=== PATIENT | female | born 1990 | race Caucasian/White ===

== ENCOUNTER 2016-10-04 00:08 | Observation (INO) | payer OTHER ==
[~2016-10-04] VITALS: Ht 170.2 cm; Wt 108.4 kg
[2016-10-04] MEDS ORDERED: Lactated Ringer's 1,000 ML IV SCH (07:52)
[2016-10-04] MEDS ORDERED: Sodium Chloride LOK Flush 10 mL Syringe IVFLUSH PRN ×2 (07:55→08:40)
[2016-10-04] MEDS ORDERED: Lactated Ringer's 1,000 ML IV PRN (08:36)
[2016-10-04] MEDS ORDERED: Oxytocin 10 Unit/mL Inj IM PRN (08:40)
[2016-10-04] MEDS ORDERED: Hemorrhage Kit, Post Partum XX ONE (08:40)
[2016-10-04] MEDS ORDERED: Methylergonovine 0.2 mg/mL Inj IM PRN (08:40)
[2016-10-04] MEDS ORDERED: Oxytocin 30 Units/500 mL LR 30 UNITS in IV Premix 1 EACH IV PRN (08:40)
[2016-10-04] MEDS ORDERED: Carboprost 250 mCg/mL Inj IM PRN (08:40)
--- NOTE | 2016-10-04 08:46 | PCM.HPOB ---
Subjective Referring Provider: Admitting Physician: Nemo Giles MD Primary Care Physician: Nemo Giles MD Attending Physician: Nemo Giles MD Chief Complaint Term Induction History of Present History of Present Illness This is a 25 year old Female presenting at 40 0/7 weeks for scheduled post dates induction. Routine to this point. THC screen positive GBS negative Chlamydia treated with Azithromycin 03/19. No contractions. Was 2 cm 40% effaced in office last week. Panel ordered 06/13 and 07/14 but apparently not done. OB History: (2), Para (1), Living (1) Obstetrical Complications: None Past Medical History Smoking Status: Unknown if Ever Smoker Hx Alcohol Use: No Hx Substance Use: Yes (THC) Past Family History Living Arrangement: with Family Genetic Screening/Counseling Genetic Screening/Counseling: Negative Genetic Screening: Down syndrome Review of Systems Constitutional: Y: Change of appitite, Chills, Dizziness, Fever, Malaise, Other , Pain, Sweats, Weakness, Weight loss Eyes: Denies: Blurred Vision, Conjunctive Inflammation, Double Vision, Eyelid Inflammation, Other, Pain, Redness, Vision Changes ENT: Denies: Dental Problems, Dysphagia, Ear Discharge, Ear Pain, Hoarseness, Membranes Dry, Nasal Congestion, Nose Discharge, Nose Pain, Other, Throat Pain, Tinnitus, Ulcers/Sores in Mouth Cardiovascular: Denies: Chest Pain, Edema, Orthopnea, Other, Palpitations, SOB while laying flat Respiratory: Denies: Cough, Cough with bloody sputum, Other, Pleuritic Chest Pain, Pleuritic Chest Pain, SOB with Exertion, Sputum, Wheezing Gastrointestinal: Denies: Abdominal Pain, Black tarry stools, Blood in stool ( red), Change in Appetite, Constipation, Diarrhea, Epigastric pain, Heartburn, Nausea, Other, Use of Laxatives, Vomiting Genitourinary: Denies: Anuria, Change in Frequency, Dysuria, Hematuria, Incontinence, Nocturia, Other, Retention Musculoskeletal: Denies: Back Pain, Deformity, Limitation of Function, Neck Pain, Other, Redness, Shoulder Pain, Swelling Skin/Breasts: Denies: Bruising, Discharge, Dry or Flakiness, Jaundice, Lesions , Masses, Mastalgia, Other, Rash, Scars, Ulcers Skin: Denies: Bruising, Dry or Flakiness, Jaundice, Lesions, Other, Rash, Scars , Ulcers Neurological: Denies: Change in Speech, Confusion, Dizziness, Incoordination, Numbness, Other, Seizures, Somnolence, Tremors, Weakness Psychologic: Denies: Agitation, Anxious, Apprehensive, Depression, Insomnia, Instability, Nervousness, Other Endocrine: Denies: Blood Glucose Review, Change in Appitite, Diaphoresis, Excessive Thirst, Intolerent to Heat/Cold, Other, Recent A1C, Urinating frequently Hematologic: Denies: Abnormal bleeding, Adenopathy, Bruising, Other Medications Home medications PNV Allergy Coded Allergies: amoxicillin (Unverified Allergy, Unknown, 10/04/16) Exam Vital Signs Exam FHT 130's and reactive. Constitutional: Well-developed, No deformities, Well-groomed HEENT: Atraumatic Lungs: Clear to Auscultation Heart: Exam Unremarkable, Regular Rate/Rhythm, No Murmurs/Rubs/Gallops Abdomen: Gravid, Normal bowel sounds, Soft, No tenderness Lymphatic: Normal: Neck Palpation of Nodes Extremities: No Edema Neurological/Psychiatric: Alert, Oriented X3, No Acute Distress Neuro: Grossly Neurologically Intact, Normal Gait Gynecologic: Normal: Cervix, Uterus (2.5 cm soft vertex high floating 40% effaced) Labs/Diagnostics Group B Strep Results: Negative Previous Infant with GBS: No OB Intrapartum Assessment/Plan Assessment Term Induction -patient request -GBS negative -Missing labs Plan: Cytotec +/- Pitocin today Draw the missed panel labs. Nemo Giles MD Oct 04, 2016 08:31
[2016-10-04] MEDS: Misoprostol 25 mCg/0.25 Tablet VAGINAL SCH ×2 (09:50→17:10)
--- NOTE | 2016-10-04 10:29 | NUR ---
Social Work Note - Family assessment Andrews Reza is a 25 yr old who was admitted for induction of baby boy today. Baby boy has not been born at the time of the interview. FOB is Collin Oakley. Reason for SW consult: Marijuana during . Current living situation: Parents live together in [place] with 5 yr old son Bebo. No previous CPS involvement. Substance use Hx: Pt states that she smokes marijuana frequently for help with anxiety. She denies any other drugs or ETOH use. Denies any hx of rehab or need for treatment. Identifies that she needs to stop/cut back on her use. Mental Helath Hx: Pt denies any mental health - states that her anxiety does not require psychiatric treatment or counseling. She has good supports. Source of income: Pt gets food stamps and [employer] support - FOB is going to school to become an electrician sound. They have gould assistance to help with rent and have good family support. DV/Abuse: Pt denies any concerns with abuse. LOADING SHOVEL OILER identified that CPS would be contacted for concerns with THC during - Identified that CPS may call to follow up for the safety of the child and to see about help with resources if warranted. Pt and FOB understand and deny any questions. LOADING SHOVEL OILER called CPS report to Eleonora White at [facility]. Family denies any other needs, denies needing resources, aware of community supports. Plan: LOADING SHOVEL OILER anticipates that baby boy will d/c home with parents - no other needs identified. LOADING SHOVEL OILER updated RN. Soheila Altamirano, CONCHE OPERATOR
--- NOTE | 2016-10-04 15:50 | DRSVH ---
PROCEDURE: US OB AMNIOTIC FLUID INDEX/ POSITION LIMITED INDICATIONS: BABY POSITION OUTSIDE/PRIOR DATING DATA: Last menstrual period (LMP): 12/29/15 LMP-based estimated date of delivery (ISAAC): 10/04/16 First dating scan (date and location): 08/26/16 performed by [facility]. Estimated date of delivery (ISAAC) from first dating scan: 09/29/69. TECHNIQUE: Real-time scanning was performed of the fetus, with image documentation and biometric measurements. COMPARISON: None. FINDINGS: General: A single living intrauterine gestation is present. Presentation: Vertex Placenta: Placental position is anterior, without previa. OB-NATIONAL SALES REPRESENTATIVE Ultrasound Procedure Report Summary Fetus Summary Est. Gest. Age by first dating scan(or LMP,if no prior):40 weeks, 5 days Heart Rate: 138 bpm Findings(Amniotic Sac) Amniotic Fluid Index (NERI): 19.60 cm Pelvis and Uterus Cervix Length: Not well seen. IMPRESSION: Single living intrauterine gestation is present in vertex presentation. No additional im aging of the fetus performed. Dictated by: Gio Arnett RR Interpreted: Miguelito Stallworth MD on 10/04/2016 at 15:47 Transcribed by: ANGE on 10/04/2016 at 15:50 Approved by: Miguelito Stallworth M.D. on 10/04/2016 at 17:42
[2016-10-04 20:14] LABS: Mean Corpuscular Hemoglobin 29.1 pg (27.0-35.0); Mean Corpuscular Volume 91.9 fL (81-100)
--- NOTE | 2016-10-04 21:41 | PCM.DIMED ---
Discharge Instructions Date of Service Oct 04, 2016 Dates of Hospitalization Oct 04, 2016 at 07:28 Discharge Diagnosis Discharge Diagnosis Term Failed Cytotec Induction A Negative Blood Type Diet No restrictions Activity No restrictions Patient Instructions Follow-up Provider: Abdulaziz Dumont MD Follow-up with PCP in: Other (2-3 days) Additional Information You have a reserved induction slot on October 13 at 7 am if you still need it by then. Nemo Giles MD Oct 04, 2016 21:41
[2016-10-05 04:07] LABS: Rubella IgG Antibody 1.03 index (Immune >0.99)
--- NOTE | 2016-10-05 17:56 | PCM.DC.MED ---
Discharge Summary Date of Service Oct 04, 2016 Dates of Hospitalization Date of Hospital Admission Oct 04, 2016 at 07:28 Date of Discharge: Oct 04, 2016 Providers: Admitting Physician: Nemo Giles MD Primary Care Physician: Nemo Giles MD Attending Physician: Nemo Giles MD Diagnosis at Time of Discharge Diagnosis at Time of Discharge Term Failed Cytotec Induction A Negative Blood Type Brief History This is a 25 year old Female presenting at 40 0/7 weeks for scheduled post dates induction. Routine to this point. THC screen positive GBS negative Chlamydia treated with Azithromycin 03/19. No contractions. Was 2 cm 40% effaced in office last week. Panel ordered 06/13 and 07/14 but apparently not done. Hospital Course Cervix dilated to 3.5 cm with 2 doses of Cytotec over 14 hours. Head continued to be unengaged and floating. Blood type of A negative was identified. In Conclusion: Unfavorable Cytotec response Not enough staff to safely proceed with Pitocin trial in this non urgent induction. Non enough staff to keep her around for the 2 hours it would take to get her a Rhogam shot late tonight. She is not going easily into labor, she is not an urgent induction, without medical concerns or signs of macrosomia on recent US, she will be rescheduled for 10/13 and will follow up with my covering partner Dr. Dumont while I am out of town this week. Exam Test 10/04/16 08:00 10/04/16 09:40 Hold Urine Received (Received) Urine Opiates Screen Negative Urine Methadone Screen Negative Urine Barbiturates Screen Negative Urine Amphetamines Screen Negative Urine Benzodiazepines Screen Negative Urine Cocaine Metabolite Screen Negative Urine Cannabinoids Screen Positive White Blood Count 10.3th/mm3 (3.8-10.1) Red Blood Count 4.09mil/mm3 (3.90-5.20) Hemoglobin 11.9g/dL (12.0-15.6) Hematocrit 37.6% (35.0-46.0) Mean Corpuscular Volume 91.9fL (81-100) Mean Corpuscular Hemoglobin 29.1pg (27.0-35.0) Mean Corpuscular Hemoglobin Concent 31.6% (32.0-37.0) Red Cell Distribution Width 13.6% (12.3-15.4) Platelet Count 249bil/L (150-400) Rapid Plasma Reagin Non reactive (Non Reactive) Hepatitis B Surface Antigen Negative (Negative) Rubella IgG Antibody 1.03index (Immune >0.99) Discharge Medications No Active Prescriptions or Reported Meds Followup Plan Discharge Diet: No restrictions Discharge Activity: No restrictions Follow-up Provider: Abdulaziz Dumont MD Follow-up with PCP in: Other (2-3 days) Nemo Giles MD Oct 05, 2016 17:56
== END 2016-10-04 21:56 | disposition home or self-care (01) ==
LOC: FBC 07:28 → INTOOBSV 07:28
PROVIDERS: ADMIT Family Medicine; ATTEND Family Medicine
DX: O61.0 Failed medical induction of labor (principal); O99.323 Drug use complicating pregnancy, third trimester; Z3A.40 40 weeks gestation of pregnancy; F12.90 Cannabis use, unspecified, uncomplicated
CPT/HCPCS: 36415; 76815; 85027; 86592; 86762; 87340; 87491; 87591; G0463; G0480

== ENCOUNTER 2016-10-09 20:35 | Inpatient (IN) | payer OTHER ==
[~2016-10-09] VITALS: Ht 170.2 cm; Wt 108.0 kg
[2016-10-09] MEDS ORDERED: Sodium Chloride LOK Flush 10 mL Syringe IVFLUSH PRN (21:30)
[2016-10-09] MEDS ORDERED: Hemorrhage Kit, Post Partum XX ONE (21:30)
[2016-10-09] MEDS ORDERED: Carboprost 250 mCg/mL Inj IM PRN (21:30)
[2016-10-09] MEDS ORDERED: Oxytocin 10 Unit/mL Inj IM PRN (21:30)
[2016-10-09] MEDS ORDERED: Methylergonovine 0.2 mg/mL Inj IM PRN (21:30)
[2016-10-09] MEDS ORDERED: Oxytocin 30 Units/500 mL LR 30 UNITS in IV Premix 1 EACH IV PRN (21:30)
[2016-10-09] MEDS ORDERED: fentaNYL-PF 50 mCg/mL 2 mL Inj IVPUSH ONE ×2 (21:45→22:35)
[2016-10-09] MEDS: Lactated Ringer's 1,000 ML IV PRN ×2 (21:51→23:02)
[2016-10-09 22:01] LABS: Mean Corpuscular Hemoglobin 29.3 pg (27.0-35.0); Mean Corpuscular Volume 87.5 fL (81-100)
[2016-10-09] MEDS ORDERED: Sodium Citrate-Citric Acid 15 mL Solution ONE (22:32)
[2016-10-09] MEDS ORDERED: fentaNYL 2 mCg/mL-Bupivicaine 0.125% 100 mL Premix EPIDURAL ONE (22:47)
[2016-10-09] MEDS ORDERED: Lactated Ringer's 500 ML IV ONE (23:24)
--- NOTE | 2016-10-09 23:24 | PCM.HPANE ---
Patient Data Date of Service: Oct 09, 2016 (6054) Surgeon Admitting Provider:Nemo Giles MD Attending Provider:Nemo Giles MD Primary Care Physician:Nemo Giles MD Other Provider:Felton Kingsley Anesthesia Reason for Visit TERM TERM Ht/WT & BMI Body Mass Index Allergies Coded Allergies: amoxicillin (Unverified Allergy, Unknown, 10/04/16) Medications No Active Prescriptions or Reported Meds History Hx Alcohol Use: NoHx Substance Use: Yes (THC) Smoking Status: Unknown if Ever Smoker Stop/Bang Risk Assessment Category Category 1A: Patient has history of documented sleep apnea, and HAS NOT received any narcotic, sedative or anesthesia administration during this stay. Category 1B: Patient has history of documented sleep apnea, and HAS received any narcotic , sedative or anesthesia administration during this stay Category 2: Patient has SUSPECTED Obstructive Sleep Apnea, and HAS received any narcotic , sedative or anesthesia administration during this stay. Category 3: Patient has SUSPECTED Obstructive Sleep Apnea and HAS NOT received narcotic, sedative or anesthesia administration during this stay. Category 4: Outpatient in Procedural Areas with known sleep apnea or who screen positive for High Risk via the STOP/BANG questionnaire. Exam Exam Vital Signs Vital Signs Date Time Temp Pulse Resp B/P Pulse Ox O2 Delivery O2 Flow Rate FiO2 10/09/16 22:44 93 General Appearance: Alert, Oriented X3, Cooperative, No Acute Distress HEENT/AIRWAY: MP 2 Lungs: Clear to Auscultation Heart: Exam Unremarkable Meds/Labs/Diagnostics Admission Meds Current Medications Fentanyl Citrate (Sublimaze Inj) 50 mcg OT ONCE IVPUSH Last administered on 21:50; Start 10/09/16 at 21:45; Stop 10/09/16 at 21:46; Status DC Terbutaline Sulfate (Brethine Inj) 1 mg STK-MED ONCE .ROUTE Last administered on 10/09/16 22:44; Start 10/09/16 at 22:30; Stop 10/09/16 at 22:32; Status DC Fentanyl Citrate (Sublimaze Inj) 50 mcg ONCE ONCE IVPUSH Last administered on 10/09/16 22:43; Start 10/09/16 at 22:35; Stop 10/09/16 at 22:38; Status DC Labs Test 10/09/16 21:20 White Blood Count 15.6th/mm3 (3.8-10.1) Red Blood Count 4.33mil/mm3 (3.90-5.20) Hemoglobin 12.7g/dL (12.0-15.6) Hematocrit 37.9% (35.0-46.0) Mean Corpuscular Volume 87.5fL (81-100) Mean Corpuscular Hemoglobin 29.3pg (27.0-35.0) Mean Corpuscular Hemoglobin Concent 33.5% (32.0-37.0) Red Cell Distribution Width 13.8% (12.3-15.4) Platelet Count 283bil/L (150-400) Hold Purple Top Tube Received (Received) Plan Impression Patient chart reviewed, patient interviewed and anesthestic plan with risks, benefits, and alternatives discussed, and informed consent obtained. ASA Physical Status: ASA2 Mod Systemic Disease Anesthetic Plan: Epidural Bene/Risks/Altern/Consents: Yes HP Complete Prior to Induction: Yes Tito Milner MD Oct 09, 2016 23:24
[2016-10-09] MEDS ORDERED: EPHEDrine Sulfate 50 mg/mL Inj IVPUSH PRN (23:25)
[2016-10-09] MEDS ORDERED: Ondansetron 2 mg/mL 2 mL Inj IVPUSH PRN (23:25)
[2016-10-09] MEDS ORDERED: fentaNYL 2 mCg/mL-Bupiv 0.125% 100 ML EPIDURAL SCH (23:25)
[2016-10-09] MEDS ORDERED: Atropine 1 mg/10 mL (Code) Syringe IVPUSH PRN (23:25)
[2016-10-09] MEDS: Lactated Ringer's 1,000 ML IV SCH (23:57)
--- NOTE | 2016-10-10 00:11 | OP ---
[address] [address] OPERATIVE REPORT PATIENT: JUAN CARLOS MIDDLETON : 1990 MR#: [id number] ADMIT: 10/09/2016 JOB ID: [id number] DATE OF SURGERY: PREOPERATIVE DIAGNOSIS(ES): 1. A 40-week intrauterine , in active labor with breech presentation. 2. History of marijuana use. POSTOPERATIVE DIAGNOSIS(ES): 1. A 40-week intrauterine , in active labor with breech presentation. 2. History of marijuana use. PROCEDURE PERFORMED: External cephalic version. SURGEON: Nemo Wray MD ANESTHESIA: Spinal. ESTIMATED BLOOD LOSS: None. COMPLICATIONS: None apparent. INDICATIONS: This is a 25-year-old, -0-0-1 female, who is presenting at 40 plus 5 weeks gestation with EDC of October 04, 2016, complaining of regular uterine contractions. She was checked and noted to be 8 cm dilated. care was with Dr. Giles. She was not ruptured at the time of admission, and I was consulted for possible external cephalic version. Risks were discussed with her prior including rupture, abruption, nonreassuring heart tones necessitating emergent section and need to proceed with section if surgery was not successful. She is also consented for a primary low transverse section at the same time. She elected to proceed. DESCRIPTION OF PROCEDURE: After spinal epidural was placed, an ultrasound revealed that the fetus was in a transverse backup position with the head in the left upper quadrant and the back was over across towards the right side. After two attempts at a forward roll, the vertex was then brought down into the maternal pelvis. Dr. Giles then checked the patient and noted that she was in vertex position and artificial rupture of membranes was then completed by him at this time, with placement of a scalp electrode. The heart tones were reactive and reassuring throughout this time. She tolerated this procedure well, recovered in her Labor and Delivery room.
--- NOTE | 2016-10-10 00:29 | PCM.HPOB ---
Subjective Referring Provider: Admitting Physician: Nemo Giles MD Primary Care Physician: Nemo Giles MD Attending Physician: Nemo Giles MD Chief Complaint Spontaneous Onset of Labor 40 5/7 W EGA Breech Presentation Recent Chlamydia treatment History of Present OB History: (2), Para (1), Living (1) Obstetrical Complications: None Past Medical History Hx Tobacco Use: No Hx Alcohol Use: No Hx Substance Use: No Past Family History Living Arrangement: with Family Genetic Screening/Counseling Genetic Screening/Counseling: Negative Genetic Screening: Down syndrome Baby father-had child w defect: No Review of Systems Constitutional: Y: Change of appitite, Chills, Dizziness, Fever, Malaise, Other , Pain, Sweats, Weakness, Weight loss Eyes: Denies: Blurred Vision, Conjunctive Inflammation, Double Vision, Eyelid Inflammation, Other, Pain, Redness, Vision Changes ENT: Denies: Dental Problems, Dysphagia, Ear Discharge, Ear Pain, Hoarseness, Membranes Dry, Nasal Congestion, Nose Discharge, Nose Pain, Other, Throat Pain, Tinnitus, Ulcers/Sores in Mouth Cardiovascular: Denies: Chest Pain, Edema, Orthopnea, Other, Palpitations, SOB while laying flat Respiratory: Denies: Cough, Cough with bloody sputum, Other, Pleuritic Chest Pain, Pleuritic Chest Pain, SOB with Exertion, Sputum, Wheezing Gastrointestinal: Denies: Abdominal Pain, Black tarry stools, Blood in stool ( red), Change in Appetite, Constipation, Diarrhea, Epigastric pain, Heartburn, Nausea, Other, Use of Laxatives, Vomiting Genitourinary: Denies: Anuria, Change in Frequency, Dysuria, Hematuria, Incontinence, Nocturia, Other, Retention Musculoskeletal: Denies: Back Pain, Deformity, Limitation of Function, Neck Pain, Other, Redness, Shoulder Pain, Swelling Skin/Breasts: Denies: Bruising, Discharge, Dry or Flakiness, Jaundice, Lesions , Masses, Mastalgia, Other, Rash, Scars, Ulcers Skin: Denies: Bruising, Dry or Flakiness, Jaundice, Lesions, Other, Rash, Scars , Ulcers Neurological: Denies: Change in Speech, Confusion, Dizziness, Incoordination, Numbness, Other, Seizures, Somnolence, Tremors, Weakness Psychologic: Denies: Agitation, Anxious, Apprehensive, Depression, Insomnia, Instability, Nervousness, Other Endocrine: Denies: Blood Glucose Review, Change in Appitite, Diaphoresis, Excessive Thirst, Intolerent to Heat/Cold, Other, Recent A1C, Urinating frequently Allergy Coded Allergies: amoxicillin (Unverified Allergy, Unknown, 10/04/16) Exam Constitutional: Well-developed HEENT: Atraumatic Lungs: Clear to Auscultation Heart: Regular Rate/Rhythm, No Murmurs/Rubs/Gallops Abdomen: Gravid Extremities: No Edema Neurological/Psychiatric: Oriented X3, No Acute Distress Neuro: Grossly Neurologically Intact, Normal DTRs, No Clonus noted, Normal Tone , Normal Speech, Normal Gait Gynecologic: Abnormal: Cervix (8 cm 100% effaced, High Floating body part. Bulging bag of water. ) Labs/Diagnostics Hx Rho(D) Immune Globulin: Yes Group B Strep Results: Negative Previous Infant with GBS: No Rubella: Immune Lab History: Negative for: Hx Chicken Pox, Hx Gonorrhea, Hx HIV, Hx Herpes, Hx Syphilis OB Intrapartum Assessment/Plan Assessment Spontaneous Labor at 40 5/7 weeks Breech Presentation Recently Treated Chlamydia Cervical Culture\ Consult Dr. Wray for Version Continue expectant management Consider /Epidural. Discussed with patient and with Dr. Wray. Nemo Giles MD Oct 09, 2016 22:40
[2016-10-10] MEDS: Sodium Chloride LOK Flush 10 mL Syringe IVFLUSH SCH ×3 (00:30→16:30)
[2016-10-10] MEDS ORDERED: Oxytocin 30 Units/500 mL LR Premix IV SCH (02:35)
[2016-10-10] MEDS ORDERED: CeFAZolin 2 Gm/50 mL D5W Duplex Bag IV ONE (04:18)
[2016-10-10] MEDS ORDERED: Sodium Citrate-Citric Acid 15 mL Solution PO SCH ×2 (04:20)
[2016-10-10] MEDS ORDERED: Lactated Ringer's 1,000 ML IV PRN (05:12)
[2016-10-10] MEDS ORDERED: Morphine PF 1 mg/mL 10 mL Inj EPIDURAL ONE (05:15)
[2016-10-10] MEDS ORDERED: Dexamethasone 4 mg/mL Inj IVPUSH PRN (05:15)
[2016-10-10] MEDS ORDERED: HYDROmorphone 1 mg/mL Inj IVPUSH PRN ×2 (05:15→10:40)
[2016-10-10] MEDS ORDERED: Ondansetron 2 mg/mL 2 mL Inj IVPUSH PRN (05:15)
[2016-10-10] MEDS ORDERED: MetoCLOpramide 5 mg/mL 2 mL Inj IVPUSH PRN (05:15)
[2016-10-10] MEDS ORDERED: Atropine 0.4 mg/mL Inj IV PRN (05:15)
[2016-10-10] MEDS ORDERED: fentaNYL-PF 50 mCg/mL 2 mL Inj IVPUSH PRN (05:15)
[2016-10-10] MEDS ORDERED: EPHEDrine Sulfate 50 mg/mL Inj IVPUSH PRN (05:15)
[2016-10-10] MEDS ORDERED: LANOlin HPA 7 Gm Ointment TOPICAL PRN (05:40)
[2016-10-10] MEDS ORDERED: Hemorrhage Kit, Post Partum XX ONE (05:40)
--- NOTE | 2016-10-10 05:57 | PCM.ANEP1 ---
Post Anesthesia Phase 1 PACU Phase 1 Assessment Date of Service: Oct 09, 2016 (8550) Vital Signs Vital Signs Date Time Temp Pulse Resp B/P Pulse Ox O2 Delivery O2 Flow Rate FiO2 10/09/16 22:44 93 Anesthetic Administered: Epidural Level of Alertness: Awake, talking LLANES's with Equal Strength: No (spinal) Pain: No Pain Scale Score: 8 Oxygen Delivery: Room Air Lungs: Clear to Auscultation Tito Milner MD Oct 10, 2016 05:57
--- NOTE | 2016-10-10 05:57 | PCM.ANEP2 ---
Post Anesthesia Evaluation ASA/CMS Post Anesthesia VS in Patient's Normal Range?: Yes Resp Stable; Airway Patent?: Yes CV Function & Hydration Stable: Yes Mental Status Recovered?: Yes Pain control Satisfactory?: Yes N/V Control Satisfactory?: Yes Tito Milner MD Oct 10, 2016 05:57
--- NOTE | 2016-10-10 06:21 | OP ---
[address] [address] OPERATIVE REPORT PATIENT: JUAN CARLOS MIDDLETON : 1990 MR#: [id number] ADMIT: 10/09/2016 JOB ID: [id number] DATE OF SURGERY: 10/10/2016 PREOPERATIVE DIAGNOSIS(ES): 1. A 40+5 week intrauterine . In active labor, edematous cervix, with arrest of dilation. 2. Limited care. 3. Rh-negative status without receiving RhoGAM. 4. Marijuana use in the . 5. Chlamydia diagnosis in early . 6. Obesity, with a BMI of 37. POSTOPERATIVE DIAGNOSIS(ES): 1. A 40+5 week intrauterine . In active labor, edematous cervix, with arrest of dilation. 2. Limited care. 3. Rh-negative status without receiving RhoGAM. 4. Marijuana use in the . 5. Chlamydia diagnosis in early . 6. Obesity, with a BMI of 37. PROCEDURE: Primary low-transverse section. SURGEON: Nemo Wray MD DIRECTOR VIDEO: Virgil Giles MD, whose help was necessary for retraction, visualization and completion of the case. ANESTHESIA: Spinal. ESTIMATED BLOOD LOSS: 700 cc. FLUID REPLACEMENT: 1500 cc of crystalloid. URINE OUTPUT: 800 cc of clear yellow urine. FINDINGS: Live-born male , born on October 10, 2016, at 0458 hours, weighing 3543 g or 7 pounds 10 ounces, with Apgars of 8 at one minute, 9 at five minutes. INDICATIONS: This is a 25-year-old, -0-0-1 female, who presented at 40 plus five weeks gestational age with an EDC of October 04, 2016, in labor. She was checked by her Family Practice OB doctor, who said she was 9 cm dilated and found that she was in breech positioning. The patient was admitted and, after consent was obtained, an external cephalic version was completed. Please see the previous op report for full details regarding this. External cephalic version was successful and artificial rupture of membranes was completed around 2200 hours on the . At that time, a scalp electrode was placed. She was thought to still be 9 cm. She was then monitored and thought to have progressed to complete, at which point she pushed and labored down off and on for a total of 3-1/2 hours, with minimal descent. Total pushing time was approximately an hour and a half, at which point, CHAR FILTER OPERATOR HELPER was contacted. I evaluated the patient, noted that she had what was felt to be a moderate amount of edematous cervix, all the way around the vertex. At this point, however, she had been pushing for several hours, and her cervix was so swollen and I did not believe that it would regress spontaneously. Given this fact, a primary low-transverse section was recommended. The risks, benefits, and alternatives were discussed with the patient prior to the procedure, and she elected to proceed. DESCRIPTION OF PROCEDURE: The patient was taken to the operating room. She received 2 g Ancef preoperatively. She was placed in dorsal supine position with a leftward tilt. She was prepped and draped in the usual sterile fashion for section. Under excellent spinal anesthesia, the abdomen was entered sharply through a Pfannenstiel incision. This was carried down both sharply as well as with electrocautery down to the level of the rectus fascia. The fascia was then incised in the midline and a combination of blunt and sharp dissection was used to separate the fascia from the underlying rectus muscle. The peritoneum was entered bluntly and blunt dissection was used to expose the gravid uterus. Bladder blade was then placed. A small incision was made over the lower uterine segment, revealing a scant amount of clear amniotic fluid. The vertex was then brought to the uterine incision, and with the aid of fundal pressure, the 's vertex was delivered atraumatically through the uterine incision. The anterior shoulder delivered easily, followed by the posterior shoulder and remainder of the was then delivered. The cord was clamped and cut. The was passed to the nursing team who were in attendance. Cord blood was obtained. Placenta delivered intact spontaneously and was passed off the table. Thirty units of Pitocin was placed in the IV bag to firm the uterus. The uterus was removed from the abdominal cavity, covered with moist laps, then cleaned with a moist lap sponge. The uterus was closed first in a single locking layer of 0 Vicryl, and a second imbricating layer of 0 Vicryl was placed on top of this. Good hemostasis was noted. The posterior cul-de-sac was irrigated and the uterus was replaced into the abdominal cavity where the pericolic gutters were cleared of clot and debris. The uterine incision was again noted to be hemostatic. Next, the rectus muscle was inspected and noted to be hemostatic. The rectus diastasis was reapproximated with a single [id number] stitch of plain gut suture. The fascia was closed in a single running nonlocking layer of 0 Vicryl. The subcutaneous tissue was closed with a running nonlocking stitch of 0 plain. The skin was closed with 4-0 Vicryl. All sponge, needle, and instrument counts were correct at the completion of the procedure. The patient tolerated this procedure well and recovered in Labor and Delivery. TERESA
[2016-10-10] MEDS ORDERED: Morphine PF 1 mg/mL 10 mL Inj ONE (06:30)
[2016-10-10] MEDS ORDERED: Dexamethasone 4 mg/mL Inj ONE (06:38)
[2016-10-10] MEDS ORDERED: MetoCLOpramide 5 mg/mL 2 mL Inj ONE (06:38)
[2016-10-10] MEDS ORDERED: Ondansetron 2 mg/mL 2 mL Inj ONE (06:38)
[2016-10-10] MEDS ORDERED: Phenylephrine/NS 100 mCg/mL 10 mL Syringe IVPUSH ONE (06:38)
[2016-10-10] MEDS: Lactated Ringer's 1,000 ML IV SCH ×6 (07:24→23:24)
[2016-10-10] MEDS: Acetaminophen IV 1,000 MG in IV Premix 1 EACH IV PRN ×2 (11:06→18:37)
--- NOTE | 2016-10-10 16:08 | NUR ---
Social Work Note D/A: MARINE PAINTER reviewed Pt's EMR and noted that Initial Assessment was completed on 10/04/2016 by BUTTON RIVETERHERMANN Altamirano. P MARINE PAINTER conferred with FBC extrusion die corrector and it was decided that no additional assessment or intervention would be needed. KASIE Chow, AAC
[2016-10-11] MEDS: Sodium Chloride LOK Flush 10 mL Syringe IVFLUSH SCH ×3 (00:30→16:30)
[2016-10-11] MEDS: Lactated Ringer's 1,000 ML IV SCH ×3 (05:39→21:39)
[2016-10-11 07:46] LABS: Mean Corpuscular Hemoglobin 29.1 pg (27.0-35.0); Mean Corpuscular Volume 89.5 fL (81-100)
--- NOTE | 2016-10-11 08:37 | PCM.PNOBPP ---
Subjective Date of Service Oct 11, 2016 Post : Primary Ceserean Delivery Visit History 25 y/o now P2 on post-operative day #1 from primary low-transverse c- section. She presented at 40wks 5days with contractions after she was found to be in breech position and 9cm dilated by her PCP in clinic. She was admitted and underwent a successful external cephalic version and artificial rupture of membranes around 22:00 on 10/09. Her cervix was edematous and she progressed to complete dilation but after >3hrs of pushing there was minimal descent and she underwent a section on 10/10. Her was complicated by obesity with a BMI of 37, chlamydia early in (repeat negative), marijuana use, and breech presentation. Subjective Pain well controlled. She is ambulating without difficulty and voiding without difficulty (urine output ~3500ml in the last 24hrs). She states that she is still not passing gas and has not had a bowel movement. is going well, lochia normal, appetite is good and she denies nausea or vomiting. Pain Management: PO pain meds, Good Pain Control Gastrointestinal: Good Appetite, No N/V Postop Activity: Ambulating Independently Group B Strep Results: Negative Rubella: Immune RH Type: Negative Labs Laboratory Tests 10/09/16 21:20: Hold Purple Top Tube Received 10/11/16 07:26: Exam Vital Signs Vital Signs Temp 36.4, BP 94/54, HR 78, RR 18, SpO2 100% on room air. Vital Signs: VS reviewed, stable Exam Abdomen: Fundus firm, Abdomen soft, Abdomen appropriately tender : UOP has been (~3500ml/24hr), Voiding without difficulty Extremities: Edema 1+ Lungs: Clear to Auscultation Heart: Regular Rate/Rhythm General: Alert, Oriented X3 OB Post Assessment/Plan Assessment 25 y/o now P2 on post-operative day #1 from primary low-transverse c- section who is recovering appropriately. Pain Evaluation: Adequate Pain Control Post plan: Continue routine post care Plan: -Encourage ambulation -PO ibuprofen and oxycodone, prn for pain - is going well, continue teaching/support as needed -Discussed incision care and pain control -Anticipated discharge 10/12/16, when pt 48hrs post-op -Follow up at [facility] in 2wks and again at 6wks Attending Statement The patient was seen and examined together with Dr. Michele on 10/11/2016 and I agree with the history, exam and plan as outlined in the note above. / MD Ryne Garzon Courtney M DO Oct 11, 2016 07:59 Andrae Cole MD Oct 21, 2016 17:24
[2016-10-11] MEDS: HYDROcodone-APAP 5-325 mg Tablet PO PRN ×3 (09:27→19:56)
[2016-10-12] MEDS: HYDROcodone-APAP 5-325 mg Tablet PO PRN ×3 (00:18→08:23)
[2016-10-12] MEDS: Sodium Chloride LOK Flush 10 mL Syringe IVFLUSH SCH ×2 (00:30→08:30)
[2016-10-12] MEDS: Lactated Ringer's 1,000 ML IV SCH (05:39)
[2016-10-12] MEDS ORDERED: IBUP800T28 PO (07:05)
[2016-10-12] MEDS ORDERED: ASCO-294 PO (07:05)
[2016-10-12] MEDS ORDERED: FERR-83 PO (07:05)
[2016-10-12] MEDS ORDERED: Docusate Sodium PO (07:05)
[2016-10-12] MEDS ORDERED: HYDR-4003 PO (10:36)
--- NOTE | 2016-10-12 10:46 | PCM.PNOBPP ---
Subjective Date of Service Oct 12, 2016 Post : Primary Ceserean Delivery Visit History 25 y/o now P2 on post-operative day #2 from primary section. She presented at 40wks 5days with contractions after she was found to be in breech position and 9cm dilated by her PCP in clinic. She was admitted and underwent a successful external cephalic version and artificial rupture of membranes around 22:00 on 10/09. Her cervix was edematous and she progressed to complete dilation but after >3hrs of pushing there was minimal descent and she underwent a section on 10/10. Her was complicated by obesity with a BMI of 37, chlamydia early in (repeat negative), marijuana use, and breech presentation. Subjective Pain well controlled. She is ambulating without and voiding without difficulty. She states that she is passing gas but has not had a bowel movement. is going well, lochia normal, appetite is good and she denies nausea or vomiting. Lochia: Normal Pain Management: PO pain meds, Good Pain Control Gastrointestinal: Good Appetite, No N/V Postop Activity: Ambulating Independently Group B Strep Results: Negative Rubella: Immune RH Type: Negative Labs Laboratory Tests 10/09/16 21:20: Hold Purple Top Tube Received 10/11/16 07:26: White Blood Count 10.7, Red Blood Count 3.51, Hemoglobin 10.2, Hematocrit 31.4, Mean Corpuscular Volume 89.5, Mean Corpuscular Hemoglobin 29.1, Mean Corpuscular Hemoglobin Concent 32.5, Red Cell Distribution Width 13.7, Platelet Count 203 Exam Vital Signs Vital Signs: VS reviewed, stable Exam Abdomen: Fundus firm, Abdomen soft, Abdomen appropriately tender Perineum: Intact : Voiding without difficulty Extremities: No tenderness/swelling Lungs: Clear to Auscultation Heart: Regular Rate/Rhythm, No Murmurs/Rubs/Gallops General: Alert, Oriented X3 OB Post Assessment/Plan Assessment 25 y/o now P2 on post-operative day #2 from primary low-transverse c- section who is recovering appropriately. Pain Evaluation: Adequate Pain Control Post plan: Continue routine post care Plan: -PO ibuprofen and hydrocodone, prn for pain - is going well, continue teaching/support as needed -Reviewed incision care and pain control -Anticipated discharge 10/12/16, when pt 48hrs post-op -Follow up at [facility] in 2wks and again at 6wks Attending Statement I saw patient. I agree with above evaluation and plan. Nancy Michele DO Oct 12, 2016 06:44 Lisa Sena MD Oct 22, 2016 11:04
--- NOTE | 2016-10-12 10:50 | PCM.DIOB ---
Nancy Michele DO 10/12/16 0651: Obstetrical Disch Instruction Date of Service: Oct 12, 2016 Dates of Hospitalization Date of Hospital Admission Oct 09, 2016 at 21:01 Providers Admitting Physician: Nemo Wray MD Primary Care Physician: Nemo Wray MD Attending Physician: Nemo Wray MD Discharge Diagnosis Discharge Diagnosis Term status post primary delivery Problems: Diet Discharge Diet: No restrictions Activity Discharge Activity-General: Pelvic Rest for 6 weeks Dressing and Incisional Care Dressing Care: Allow Steri Stripes to fall off Hygiene: May shower Additional Instructions Discharge Instructions Continue your vitamin. Please take the iron and vitamin C together for your anemia. Do not take more pain medication (Vicodin) than is necessary -- less is better. Vicodin pills have Tylenol (acetaminophen) in them at 325mg per pill. Do not take Tylenol in addition to your pain medication but should take one or the other. Both iron and Vicodin can give you constipation so you have also been given a prescription for docusate to keep you regular. Be sure to follow up in 2 weeks and then again in 6 weeks at [facility]. Pelvic rest for 6 weeks (nothing per vagina including intercourse, tampons) If you have a fever greater than 100.4, please call [facility]. There is always someone senior applications developer to talk to. If you have an increase in bleeding, call [facility]. If you have a lot of bleeding suddenly, especially if you have symptoms of dizziness & weakness with it, get emergency help. When you see [facility] in two weeks, you will be informed of the results of all the labs. If you start experiencing extreme depression, especially if you feel that you are a danger to yourself or your family, seek emergency help. You have been through a lot -- BE SURE TO TAKE CARE OF YOURSELF. Follow Up Plan Follow Up Plan Follow up in 2 weeks at [facility] and again in 6 weeks. [facility] Call your provider for: Fever or Chills, Shortness of breath, Heavy vaginal bleeding, Epigastric pain, Excessive constipation Lisa Sena MD 10/12/16 1117: Obstetrical Disch Instruction Attending Statement I physically saw patient and examined her. Agree with above finding and plan Nancy Michele DO Oct 12, 2016 06:51 Lisa Sena MD Oct 12, 2016 11:17
--- NOTE | 2016-10-12 10:55 | PCM.DC.OB ---
Obstetrical Discharge Summary Date of Service Oct 12, 2016 Date of hospital admission Oct 09, 2016 at 21:01 Date of Discharge: Oct 12, 2016 Providers Admitting Physician: Nemo Wray MD Primary Care Physician: Nemo Wray MD Attending Physician: Nemo Wray MD Diagnosis at Time of Discharge Term status post primary delivery Limited care Rh-negative status without receiving RhoGAM Marijuana use in the Chlamydia diagnosis in early Obesity, with a BMI of 37 Problems: Invasive procedures PROCEDURE: Primary low-transverse section (10/10/16); SURGEON: Nemo Wray MD FINDINGS: Live-born male infant, born on October 10, 2016, at 0458 hours, weighing 3543 g or 7 pounds 10 ounces, with Apgars of 8 at one minute, 9 at five minutes. Date of Procedure: Oct 10, 2016 Brief History and Physical: 25 y/o now P2 on post-operative day #2 from primary section. Her was complicated by obesity with a BMI of 37, chlamydia early in (repeat negative), marijuana use, and breech presentation. Exam Vital signs: General: Well developed, well nourished, AOx3 Abdomen: Fundus firm, abdomen soft and appropriately tender : Voiding without difficulty Extremities: Trace edema Lungs: Clear to auscultation Heart: Regular rate and rhythm, no murmurs . Hospital Course: 25 y/o now P2 who presented at 40wks 5days with contractions after she was found to be in breech position and 9cm dilated by her PCP in clinic. She was admitted and underwent a successful external cephalic version and artificial rupture of membranes around 22:00 on 10/09. Her cervix was edematous and she progressed to near complete dilation but after >3hrs of laboring there was minimal descent with arrest of dilation and she underwent a primary section on 10/10. She is recovering appropriately and discharged on post -operative day #2 in stable condition. Pain well controlled, ambulating and voiding without difficulty and normal lochia. . ([Docusate Sodium]) 250 MG CAPSULE 100 MG PO BID PRN PRN For Constipation Prescribed by: MARKY WHITE DO Ascorbate Calcium (Vitamin C) 500 Mg Tablet 500 MG PO DAILY Prescribed by: MARKY M BEUNING, DO Ferrous Sulfate (Ferrous Sulfate) 325 Mg Tablet 325 MG PO DAILY Prescribed by: MARKY WHITE, DO Hydrocodone-Acetaminophen 5-325 mg (Hydrocodone-Acetaminophen 5-325 mg) 1 Each Tablet 1-2 TABLET PO Q6H PRN PRN For Pain Prescribed by: MARKY WHITE, DO Ibuprofen (Ibuprofen) 800 Mg Tablet 800 MG PO Q8H PRN PRN For Pain Prescribed by: MARKY WHITE DO Follow-up plan Follow up in 2 weeks at [facility] and again at 6 weeks. Discharge Diet: No restrictions Discharge Activity-General: Pelvic Rest for 6 weeks, Balance rest and activity , Ice incision 3-5 time/day for 20min, No lifting >15 pounds for 2 weeks Patient instructions Continue your vitamin. Please take the iron and vitamin C together for your anemia. Do not take more pain medication (Vicodin) than is necessary -- less is better. Vicodin pills have Tylenol (acetaminophen) in them at 325mg per pill. Do not take Tylenol in addition to your pain medication but should take one or the other. Both iron and Vicodin can give you constipation so you have also been given a prescription for docusate to keep you regular. Be sure to follow up in 2 weeks and then again in 6 weeks at [facility]. Pelvic rest for 6 weeks (nothing per vagina including intercourse, tampons) If you have a fever greater than 100.4, please call [facility]. There is always someone eyewear consultant to talk to. If you have an increase in bleeding, call [facility]. If you have a lot of bleeding suddenly, especially if you have symptoms of dizziness & weakness with it, get emergency help. When you see [facility] in two weeks, you will be informed of the results of all the labs. If you start experiencing extreme depression, especially if you feel that you are a danger to yourself or your family, seek emergency help. You have been through a lot -- BE SURE TO TAKE CARE OF YOURSELF. Attending Statement: I saw patient and examined her. Agree with above evaluation and plan. Marky White DO Oct 12, 2016 06:51 Lisa Sena MD Oct 12, 2016 11:20
[2016-10-12 11:11] VITALS: BP 97/70; PULSE 78; RESP 16
--- NOTE | 2016-10-12 12:28 | NUR ---
Shift Note Mother caring for self and baby independently. Vital signs stable. Verbal and written discharge instructions given with verbal understanding. Discharged home in stable condition.
== END 2016-10-12 12:28 | disposition home or self-care (01) | DRG 765 ==
LOC: FBCO 20:35 → FBC 21:01
PROVIDERS: ADMIT Obstetrics & Gynecology; ATTEND Obstetrics & Gynecology
PROC: 10D00Z1 Extraction of Products of Conception, Low, Open Approach (ICD-10-PCS; 2016-10-10)
PROC: 10907ZC Drainage of Amniotic Fluid, Therapeutic from Products of Conception, Via Natural or Artificial Opening (ICD-10-PCS; 2016-10-10)
PROC: 10H073Z Insertion of Monitoring Electrode into Products of Conception, Via Natural or Artificial Opening (ICD-10-PCS; 2016-10-10)
PROC: 10S0XZZ Reposition Products of Conception, External Approach (ICD-10-PCS; principal; 2016-10-10 04:33)
DX: O32.1XX0 Maternal care for breech presentation, not applicable or unspecified (principal); O99.324 Drug use complicating childbirth; E66.9 Obesity, unspecified; O99.214 Obesity complicating childbirth; F12.90 Cannabis use, unspecified, uncomplicated; Z68.37 Body mass index [BMI] 37.0-37.9, adult; Z37.0 Single live birth; O09.33 Supervision of pregnancy with insufficient antenatal care, third trimester; Z3A.40 40 weeks gestation of pregnancy